=== PATIENT | female | born 1995 | race Two or more races ===

== ENCOUNTER 2017-08-09 19:07 | Emergency (ER) | payer SELFPAY ==
[~2017-08-09] VITALS: Ht 160 cm; Wt 77.9 kg
[2017-08-09 19:08] VITALS: BP 119/76
[2017-08-09] MEDS ORDERED: KETOROLAC 30 MG/1 ML IM ONE (20:00)
[2017-08-09] MEDS ORDERED: KETOROLAC 30 MG/1 ML ONE (20:04)
== END 2017-08-09 20:26 | disposition home or self-care (01) ==
LOC: ED 20:20
DX: S60.221A Contusion of right hand, initial encounter (principal); G89.11 Acute pain due to trauma; M79.641 Pain in right hand; W18.30XA Fall on same level, unspecified, initial encounter; Y93.89 Activity, other specified; Y92.89 Other specified places as the place of occurrence of the external cause; Y99.8 Other external cause status
CPT/HCPCS: 73130; 96372; 99284; J1885